=== PATIENT | male | born 1970 | race Caucasian/White ===

== ENCOUNTER 2021-03-05 01:25 | Inpatient (IN) | payer OTHER ==
[~2021-03-05] VITALS: Ht 190.5 cm; Wt 181.4 kg
[~2021-03-05 01:25] MED LIST: BACTROBAN OINT22 GM EXT; BUMETANIDE0.5 MG PO; GLUCOPHAGE500 MG PO; HYDROCHLOROTHIA25 MG PO; IBUPROFEN800 MG PO; JANUVIA 100 MG100 MG PO; LEVOFLOXACIN500 MG PO; LIPITOR TAB 2020 MG PO; NEURONTIN800 MG PO; PREDNISONE 20 M20 MG PO; ZESTRIL/PRINIVI10 MG PO
[2021-03-05] MEDS ORDERED: LEVOFLOXACIN500 MG PO (03:37)
[2021-03-05] MEDS ORDERED: IBUPROFEN800 MG PO (03:38)
[2021-03-05] MEDS ORDERED: LAMISIL TAB 25250 MG PO (03:38)
[2021-03-05] MEDS ORDERED: DULERA 200 MCG8.8 GM INH (03:39)
[2021-03-05] MEDS ORDERED: OMEPRAZOLE40 MG PO (03:40)
[2021-03-05] MEDS ORDERED: SPIRIVA RESPIMAT4 GM INH (03:40)
[2021-03-05] MEDS ORDERED: SYMBICORT 16010.2 GM INH (03:41)
[2021-03-05] MEDS ORDERED: IPRAT-ALBUT 0.5-3 ML INH (03:42)
[2021-03-05 04:24] LABS: HEMOGLOBIN 12.2 gm/dl (14.0-17.5); RED BLOOD COUNT 3.89 M/UL (4.20-5.50); WHITE BLOOD COUNT 12.2 K/UL (4.5-11.0)
--- NOTE | 2021-03-05 11:49 | NUR ---
03-05-2021 AT 1107. I CALLED TO INFORM HER OF THE PATIENT. PATIENT STATED HE RANDOMLY WAS HAVING LEFT THIGH PAIN WHICH RESULTED TO HIM HITTING HIMSELF IN THE HEAD. MD WAS INFORMED OF THIS AND CAME TO THE UNIT TO ASSESS THE PATIENT. THE PATIENT KEEPS PULLING AND JERKING THE CORDS AND IV. PATIENT REFUSES TO STAY STILL LONG ENOUGH TO OBTAIN A ACCURATE BLOOD PRESSURE READING. MD IS OK IF WE DO NOT HAVE A BP READING.
[2021-03-06 06:49] LABS: HEMOGLOBIN 10.9 gm/dl (14.0-17.5); WHITE BLOOD COUNT 10.4 K/UL (4.5-11.0)
[2021-03-06 06:50] LABS: RED BLOOD COUNT 3.5 M/UL (4.20-5.50)
[2021-03-07 04:03] LABS: HEMOGLOBIN 10.9 gm/dl (14.0-17.5); RED BLOOD COUNT 3.55 M/UL (4.20-5.50); WHITE BLOOD COUNT 10.5 K/UL (4.5-11.0)
[2021-03-08 04:52] LABS: RED BLOOD COUNT 3.57 M/UL (4.20-5.50); WHITE BLOOD COUNT 8.8 K/UL (4.5-11.0)
[2021-03-08 05:19] LABS: HBSAG SCREEN Negative (Negative); HEP A AB, IGM Negative (Negative); HEP B CORE AB, IGM Negative (Negative); HEP C VIRUS AB <0.1 (0.0-0.9)
[2021-03-08 11:34] LABS: ANTISTREPTOLYSIN O AB 56.7 IU/mL (0.0-200.0); COMPLEMENT C3, SERUM 134 mg/dL (82-167); COMPLEMENT C4, SERUM 27 mg/dL (12-38)
[2021-03-08 15:48] LABS: ALBUMIN 2.7 g/dL (2.9-4.4); ALPHA-1-GLOBULIN 0.4 g/dL (0.0-0.4); ALPHA-2-GLOBULIN 1.3 g/dL (0.4-1.0); BETA GLOBULIN 0.7 g/dL (0.7-1.3); GAMMA GLOBULIN 0.4 g/dL (0.4-1.8); GLOBULIN, TOTAL 2.9 g/dL (2.2-3.9); IMMUNOGLOBULIN A, QN, SERUM 118 mg/dL (90-386); IMMUNOGLOBULIN G, QN, SERUM 388 mg/dL (603-1613); IMMUNOGLOBULIN M, QN, SERUM 79 mg/dL (20-172); M-SPIKE Not Observed g/dL (Not Observed); PROTEIN, TOTAL, SERUM 5.6 g/dL (6.0-8.5)
[2021-03-09 07:01] LABS: HEMOGLOBIN 9.8 gm/dl (14.0-17.5); RED BLOOD COUNT 3.3 M/UL (4.20-5.50); WHITE BLOOD COUNT 8.1 K/UL (4.5-11.0)
[2021-03-09 09:53] LABS: ACINETOBACTER BAUMANNII Not Detected (Negative); ENTEROCOCCUS Not Detected (Negative); KPC-CARBAPENEM-RESISTANCE GENE Not Detected (Negative); STAPHYLOCOCCUS Not Detected (Negative); STAPHYLOCOCCUS AUREUS Not Detected (Negative); STREP AGALACTIAE (GROUP B) Not Detected (Negative); STREP PYOGENES (GROUP A) Not Detected (Negative); STREPTOCOCCUS Not Detected (Negative); mecA (METHICILLIN RESIST GENE Not Detected (Negative); vanA/B (VANCOMYCIN RESIST GENE Not Detected (Negative)
[2021-03-09 09:54] LABS: CANDIDA ALBICANS Not Detected (Negative); CANDIDA KRUSEI Not Detected (Negative); CANDIDA TROPICALIS Not Detected (Negative); ESCHERICHIA COLI Not Detected (Negative); HAEMOPHILUS INFLUENZAE Not Detected (Negative); KLEBSIELLA OXYTOCA Not Detected (Negative); KLEBSIELLA PNEUMONIAE Not Detected (Negative); PROTEUS Not Detected (Negative); PSEUDOMONAS AERUGINOSA Not Detected (Negative); SERRATIA MARCESANS Not Detected (Negative)
[2021-03-09 16:12] LABS: ANTIMYELOPEROXIDASE (MPO) ABS <9.0 U/mL (0.0-9.0); ANTIPROTEINASE 3 (PR-3) ABS <3.5 U/mL (0.0-3.5); ATYPICAL PANCA 1:40 titer (Neg:<1:20); CYTOPLASMIC (C-ANCA) <1:20 titer (Neg:<1:20); PERINUCLEAR (P-ANCA) <1:20 titer (Neg:<1:20)
[2021-03-10 07:32] LABS: HEMOGLOBIN 10.2 gm/dl (14.0-17.5); RED BLOOD COUNT 3.36 M/UL (4.20-5.50); WHITE BLOOD COUNT 6.5 K/UL (4.5-11.0)
[2021-03-10 07:46] LABS: BUN/CREATININE RATIO 55 (0-10)
[2021-03-11 02:39] LABS: HEMOGLOBIN 10.4 gm/dl (14.0-17.5); RED BLOOD COUNT 3.46 M/UL (4.20-5.50); WHITE BLOOD COUNT 6.6 K/UL (4.5-11.0)
[2021-03-11 02:59] LABS: BUN/CREATININE RATIO 80 (0-10)
[2021-03-12 05:35] LABS: HEMOGLOBIN 10.9 gm/dl (14.0-17.5); RED BLOOD COUNT 3.55 M/UL (4.20-5.50); WHITE BLOOD COUNT 7.8 K/UL (4.5-11.0)
[2021-03-12 05:57] LABS: BUN/CREATININE RATIO 52 (0-10)
[2021-03-12] MEDS ORDERED: LOPRESSOR 25 MG25 MG PO (12:50)
[2021-03-12] MEDS ORDERED: HUMALOG 10100 UNITS/ SC (13:27)
[2021-03-12] MEDS ORDERED: DEX4 GLUCOSE4 GM PO (13:27)
== END 2021-03-12 14:55 | disposition home health service (06) | DRG 682 ==
LOC: CCU 01:25 → PROG CARE 03-10 17:38
PROVIDERS: Internal Medicine; Internal Medicine Nephrology; Internal Medicine Pulmonary Disease; ADMIT Internal Medicine
PROC: 5A1D70Z Performance of Urinary Filtration, Intermittent, Less than 6 Hours Per Day (ICD-10-PCS; principal; 2021-03-05)
PROC: 05HM33Z Insertion of Infusion Device into Right Internal Jugular Vein, Percutaneous Approach (ICD-10-PCS; 2021-03-05)
PROC: B543ZZA Ultrasonography of Right Jugular Veins, Guidance (ICD-10-PCS; 2021-03-05)
PROC: 5A1D70Z Performance of Urinary Filtration, Intermittent, Less than 6 Hours Per Day (ICD-10-PCS; 2021-03-06)
PROC: 5A09457 Assistance with Respiratory Ventilation, 24-96 Consecutive Hours, Continuous Positive Airway Pressure (ICD-10-PCS; 2021-03-06)
PROC: 5A1D70Z Performance of Urinary Filtration, Intermittent, Less than 6 Hours Per Day (ICD-10-PCS; 2021-03-07)
PROC: 5A0935A Assistance with Respiratory Ventilation, Less than 24 Consecutive Hours, High Flow/Velocity Cannula (ICD-10-PCS; 2021-03-07)
PROC: 3E033XZ Introduction of Vasopressor into Peripheral Vein, Percutaneous Approach (ICD-10-PCS; 2021-03-07)
PROC: 5A0945A Assistance with Respiratory Ventilation, 24-96 Consecutive Hours, High Flow/Velocity Cannula (ICD-10-PCS; 2021-03-08)
DX: N17.0 Acute kidney failure with tubular necrosis (principal); J96.21 Acute and chronic respiratory failure with hypoxia; J96.22 Acute and chronic respiratory failure with hypercapnia; G93.41 Metabolic encephalopathy; R57.0 Cardiogenic shock; E66.2 Morbid (severe) obesity with alveolar hypoventilation; E87.2 Acidosis; I12.0 Hypertensive chronic kidney disease with stage 5 chronic kidney disease or end stage renal disease; E27.40 Unspecified adrenocortical insufficiency; Z68.43 Body mass index [BMI] 50.0-59.9, adult; Z20.822 Contact with and (suspected) exposure to COVID-19; T39.395A Adverse effect of other nonsteroidal anti-inflammatory drugs [NSAID], initial encounter; E86.0 Dehydration; N18.6 End stage renal disease; E87.70 Fluid overload, unspecified; I45.10 Unspecified right bundle-branch block; F17.210 Nicotine dependence, cigarettes, uncomplicated; J44.9 Chronic obstructive pulmonary disease, unspecified; E78.5 Hyperlipidemia, unspecified; R53.81 Other malaise; K21.9 Gastro-esophageal reflux disease without esophagitis; E87.5 Hyperkalemia; E11.40 Type 2 diabetes mellitus with diabetic neuropathy, unspecified; Z79.4 Long term (current) use of insulin; Z90.49 Acquired absence of other specified parts of digestive tract
CPT/HCPCS: 36415; 36600; 71045; 74018; 80048; 80053; 80069; 80074; 80202; 81001; 82009; 82533; 82570; 82784; 82803; 82962; 83520; 83605; 83735; 83883; 84155; 84156; 84165; 84300; 85025; 85027; 86038; 86060; 86160; 86256; 86334; 87040; 87150; 89050; 90937; 92526; 92610; 93005; 93925; 93926; 93970; 94640; 94660; 94760; 97110-GP-CQ; 97162; 97166; C9113; G0257; J0834; J1644; J1720; J2185; J3370; J7030; J7050; J7070; P9047; Q9967